=== PATIENT | female | born 1940 | race Caucasian/White ===

== ENCOUNTER 2017-03-14 18:11 | Emergency (ER) | payer OTHER, MEDICARE ==
[~2017-03-14] VITALS: Ht 165.1 cm; Wt 44.0 kg
[2017-03-14 18:21] VITALS: BP 123/57
[2017-03-14] MEDS ORDERED: CITA20TA15 PO (18:29)
[2017-03-14] MEDS ORDERED: ATI.5 PO (18:29)
[2017-03-14] MEDS ORDERED: ISOS20TA13 PO (18:29)
[2017-03-14] MEDS ORDERED: ATOR20TA PO (18:29)
[2017-03-14] MEDS ORDERED: METO25TA3 PO (18:29)
[2017-03-14] MEDS ORDERED: RANEX500 PO (18:29)
[2017-03-14] MEDS ORDERED: MIRT15OD PO (18:29)
--- NOTE | 2017-03-14 18:38 | NUR ---
Pt placed in bed 6 by EMS.
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
--- NOTE | 2017-03-14 19:04 | NUR ---
Pain medication offered. Pt states "I am okay right now." Splint made by EMS intact.
--- NOTE | 2017-03-14 19:15 | NUR ---
Pt report given to Marco Antonio HANNAH. Transfer of care at this time.
--- NOTE | 2017-03-14 19:20 | NUR ---
XRAY AT BEDSIDE
--- NOTE | 2017-03-14 19:55 | NUR ---
IV removed, catheter intact and site benign. Applied folded 4x4 gauze and tape to stop bleeding.
[2017-03-14 20:20] VITALS: BP 119/62
--- NOTE | 2017-03-14 20:20 | NUR ---
Patient discharged with v/s stable. Written and verbal after care instructions given and explained. Patient alert, oriented and verbalized understanding of instructions. Wheel Chair Assisted with to halfway. All questions addressed prior to discharge. ID band removed. Patient advised to follow up with PMD. Rx of MOTRIN 400MG AND TYLENOL 500MG given. Patient educated on indication of medication including possible reaction and side effects. Opportunity to ask questions provided and answered.
--- NOTE | 2017-03-14 20:22 | NUR ---
PT CALLED HER SISTER IN LAW TO ARRANGE TRANSPORT BACK TO [facility]
== END 2017-03-14 20:20 | disposition home or self-care (01) ==
LOC: MED 18:11
DX: S93.401A Sprain of unspecified ligament of right ankle, initial encounter (principal); I10 Essential (primary) hypertension; F32.9 Major depressive disorder, single episode, unspecified; F41.9 Anxiety disorder, unspecified; X50.1XXA Overexertion from prolonged static or awkward postures, initial encounter; Y93.89 Activity, other specified; Y92.89 Other specified places as the place of occurrence of the external cause; Y99.8 Other external cause status
CPT/HCPCS: 73610; 99284; Q0092

== ENCOUNTER 2018-02-12 13:44 | Emergency (ER) | payer OTHER, MEDICARE ==
[~2018-02-12] VITALS: Ht 165.1 cm; Wt 47.6 kg
[~2018-02-12 13:44] MED LIST: ATI.5 PO; ATOR20TA PO; CITA20TA15 PO; ISOS20TA13 PO; METO25TA14 PO; MIRT15OD PO; RANEX500 PO
[2018-02-12 14:18] VITALS: BP 101/52
--- NOTE | 2018-02-12 14:20 | NUR ---
Note undone in EDM - 02/12/18 at 1545 by [email or web address] 77 YO F BIB SON W/ C/O LEFT ARM/SHOULDER PAIN THAT BEGAN ON SATRDAY, BUT IS WORSE TODAY. PT PRESENTS WITH LIMITED ROM AT THIS TIME. REPORTS PAIN AT 10/10. PT AAOX4. GCS 15. CMS INTACT. RR EVEN AND UNLABORED. LUNGS BILATERALLY CLEAR. ABD SOFT, NON-TENDER. ER MD JEONG NOTIFIED. PT NEEDS MET. SAFETY PRECAUTIONS IN PLACE. WILL CONTINUE TO MONITOR.
--- NOTE | 2018-02-12 14:25 | NUR ---
WHEEL CHAIR ASSISTED TO BED 1, REPORT GIVEN TO CAMDEN ROMEO
--- NOTE | 2018-02-12 14:30 | NUR ---
77 YO F BIB SON W/ C/O LEFT ARM/SHOULDER PAIN THAT BEGAN ON SATRDAY, BUT IS WORSE TODAY. PT PRESENTS WITH LIMITED ROM AT THIS TIME. REPORTS PAIN AT 10/10. PT AAOX4. GCS 15. CMS INTACT. RR EVEN AND UNLABORED. LUNGS BILATERALLY CLEAR. ABD SOFT, NON-TENDER. ER MD JEONG NOTIFIED. PT NEEDS MET. SAFETY PRECAUTIONS IN PLACE. WILL CONTINUE TO MONITOR.
[2018-02-12] MEDS ORDERED: traMADol 50 MG TAB PO ONE (15:05)
--- NOTE | 2018-02-12 15:20 | NUR ---
pt resting comfortably in [facility] at this time. vss. safety precautions in place. will continue to monitor.
[2018-02-12 16:21] VITALS: BP 107/55
--- NOTE | 2018-02-12 16:21 | NUR ---
Patient discharged with v/s stable. Written and verbal after care instructions given and explained. Patient alert, oriented and verbalized understanding of instructions. Wheel Chair Assisted with to car. All questions addressed prior to discharge. ID band removed. Patient advised to follow up with PMD. Rx of Tramadol given. Patient educated on indication of medication including possible reaction and side effects. Opportunity to ask questions provided and answered.
== END 2018-02-12 16:21 | disposition home or self-care (01) ==
LOC: MED 13:44
DX: S42.032A Displaced fracture of lateral end of left clavicle, initial encounter for closed fracture (principal); I10 Essential (primary) hypertension; I20.9 Angina pectoris, unspecified; Z95.0 Presence of cardiac pacemaker; Z86.73 Personal history of transient ischemic attack (TIA), and cerebral infarction without residual deficits; W18.39XA Other fall on same level, initial encounter; Y93.89 Activity, other specified; Y99.8 Other external cause status; Y92.89 Other specified places as the place of occurrence of the external cause
CPT/HCPCS: 73030; 99284; Q0092

== ENCOUNTER 2020-07-06 14:49 | Emergency (ER) | payer OTHER, MEDICARE ==
[~2020-07-06] VITALS: Ht 165.1 cm; Wt 49.9 kg
[~2020-07-06 14:49] MED LIST changes: +ACET-2619 PO; +AMIO200T66 PO; +ASPI-1822 PO; +CAR30 PO; -CITA20TA15 PO; +DIT5 PO; -ISOS20TA13 PO; +LACT10SO1 PO; +LORA10TA19 PO; +MECL-303 PO; +MELA3TAB21 PO; -METO25TA14 PO; -MIRT15OD PO; -RANEX500 PO; +SENN-74 PO
--- NOTE | 2020-07-06 14:49 | NUR ---
PATIENT BIBA BLS TO ER BED 10
[2020-07-06 14:53] VITALS: BP 160/59
--- NOTE | 2020-07-06 15:00 | NUR ---
79 Y/O FEMALE BIBA FROM [facility], STAFF REPORTS PT TESTED + FOR COVID, AND REPORTS THAT PT WAS C/O OF BODY ACHES TODAY. PT DENIES ANY BODY ACHES OR DISCOMFORT AT THIS TIME. DENIES N/V/D, SOB, FEVER, CHILLS. PT STATES "I WAS TESTED FOR COVID 2 DAYS AGO AND WAS PUT IN ISOLATION BECAUSE I WAS POSITIVE, THEN I WAS JUST BROUGHT TO THE HOSPITAL". LUNGS CLEAR ON AUSCULTATION, PT STATES SHE HAS A MINOR COUGH, MOIST, NON-PRODUCTIVE. PMH: CVA, A FIB, HTN NKDA
--- NOTE | 2020-07-06 15:59 | NUR ---
covid swab performed at bedside and walked to lab
--- NOTE | 2020-07-06 16:45 | NUR ---
PATIENT PROVIDED WITH JUICE AT BEDSIDE
[2020-07-06 17:37] LABS: BASOPHILS % (AUTO) 0.2 % (0.0-2.0); EOSINOPHILS % (AUTO) 0.3 % (0.0-4.0); HEMOGLOBIN 8.7 g/dL (12.0-16.0); LYMPHOCYTES # (AUTO) 1.3 K/uL (2.5-16.5); LYMPHOCYTES % (AUTO) 20.6 % (20.5-51.1); MEAN CORPUSCULAR HEMOGLOBIN 26 pg (27-31); MEAN CORPUSCULAR HGB CONC 31 g/dL (33-37); MEAN CORPUSCULAR VOLUME 82.4 fL (80-94); MONOCYTES # (AUTO) 0.6 K/uL (0.8-1.0); MONOCYTES % (AUTO) 9.2 % (1.7-9.3); NEUTROPHILS # (AUTO) 4.6 K/uL (1.8-7.7); NEUTROPHILS % (AUTO) 69.7 % (42.2-75.2); PLATELET COUNT (AUTO) 248 K/uL (140-450); RED BLOOD CELL COUNT(AUTO) 3.39 MIL/uL (4.20-5.40); RED CELL DISTRIBUTION WIDTH 15.6 % (11.6-13.7); WHITE BLOOD COUNT (AUTO) 6.5 K/uL (4.8-10.8)
--- NOTE | 2020-07-06 17:46 | NUR ---
XRAY AT BEDSIDE
[2020-07-06 17:56] VITALS: BP 159/54
[2020-07-06 18:05] LABS: ANION GAP 14.3 (8-16); CARBON DIOXIDE 24.7 mmol/L (21-32); CHLORIDE 104 mmol/L (98-107); CREATININE 1.1 mg/dL (0.6-1.3); GLUCOSE 137 mg/dL (74-106); SODIUM SERUM 139 mmol/L (136-145); UREA NITROGEN, BLOOD 22 mg/dL (7-18)
[2020-07-06 18:11] LABS: ALBUMIN 2.9 g/dL (3.4-5.0); ASPARTATE AMINOTRANSFERASE 80 U/L (15-37); TOTAL BILIRUBIN 0.3 mg/dL (0.0-1.0)
--- NOTE | 2020-07-06 18:45 | NUR ---
REPORT CALLED TO FIDELIA BRANTLEY, AWARE OF RECEIVING PATIENT
--- NOTE | 2020-07-06 19:12 | NUR ---
REPORT GIVEN TO RONALD HANNAH FOR CONTINUANCE OF CARE, PT SHOWS NO SIGNS OF DISTRESS, VSS
--- NOTE | 2020-07-06 19:53 | NUR ---
[facility] TRANSPORT AT BEDSIDE
--- NOTE | 2020-07-06 20:00 | NUR ---
Patient discharged with v/s stable. Written and verbal after care instructions given and explained. Patient verbalized understanding. Ambulance Transport to assited living facility. All questions addressed prior to discharge. Advised to follow up with PMD.
== END 2020-07-06 20:00 ==
LOC: MED 14:49
DX: U07.1 COVID-19 (principal); R19.7 Diarrhea, unspecified; Z95.0 Presence of cardiac pacemaker; Z95.1 Presence of aortocoronary bypass graft
CPT/HCPCS: 36415; 71045; 80053; 84484; 85025; 93005; 99285